=== PATIENT | male | born 1960 | race African-American/Black ===

== ENCOUNTER 2017-05-14 01:28 | Emergency (ER) | payer MEDICARE, OTHER ==
[~2017-05-14] VITALS: Ht 180.3 cm; Wt 140.6 kg
[2017-05-14] MEDS ORDERED: AMLODIPINE BESY10 MG ORAL (01:37)
[2017-05-14] MEDS ORDERED: HYDROCHLOROTHIA25 MG ORAL (01:37)
[2017-05-14] MEDS ORDERED: IBUPROFEN600 MG ORAL ×2 (01:37→01:49)
[2017-05-14] MEDS ORDERED: ASPIR-LOW81 MG ORAL (01:37)
[2017-05-14 01:45] VITALS: BP 115/76
[2017-05-14] MEDS ORDERED: Methocarbamol 750mg tab ORAL ONE (01:45)
[2017-05-14] MEDS ORDERED: ROBAXIN-750750 MG PO (01:49)
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
[2017-05-14 02:40] VITALS: BP 120/74
[2017-05-14 02:48] VITALS: BP 120/74
--- NOTE | 2017-05-14 11:05 | Diagnostic Imaging Report ---
Indication: Neck Pain Findings: 3 views of the cervical spine were obtained. There is narrowing of the C3-4 C4-5 C5-6 discs with endplate spur formation. There is no fracture or malalignment. Soft tissues are unremarkable. Impression: Degenerative spondylosis as described above
== END 2017-05-14 02:48 | disposition home or self-care (01) ==
LOC: EMR 01:50
DX: S13.4XXA Sprain of ligaments of cervical spine, initial encounter (principal); M54.9 Dorsalgia, unspecified; M25.562 Pain in left knee; V43.52XA Car driver injured in collision with other type car in traffic accident, initial encounter; Y93.9 Activity, unspecified; Y92.410 Unspecified street and highway as the place of occurrence of the external cause; Z88.8 Allergy status to other drugs, medicaments and biological substances; I10 Essential (primary) hypertension; E11.9 Type 2 diabetes mellitus without complications; M47.892 Other spondylosis, cervical region
CPT/HCPCS: 72040; 99284

== ENCOUNTER 2017-06-27 16:46 | Inpatient (IN) | payer MEDICARE, OTHER ==
[~2017-06-27] VITALS: Ht 180.3 cm; Wt 140.6 kg
[~2017-06-27 16:46] MED LIST: AMLODIPINE BESY10 MG ORAL; ASPIR-LOW81 MG ORAL; HYDROCHLOROTHIA25 MG ORAL; IBUPROFEN600 MG ORAL; ROBAXIN-750750 MG PO
[2017-06-27] MEDS ORDERED: Metoclopramide 10mg/2ml Inj IVP ONE (17:15)
[2017-06-27 17:30] VITALS: BP 131/80
--- NOTE | 2017-06-27 17:35 | Emergency Room Report ---
History of Present Illness General Chief Complaint: Fever Source: Patient, EMS Present Illness HPI 57YOM BIBEMS "because my pressure was high." Also c/o left catholic headache, dull in quality, 4/10 pain for 2 days. Took ibuprofen last night with improvement. c/o chills. "Turned off AC in my house." Denies neck pain/stiffness, chest pain, SOB, abd pain, nausea/vomiting, urinary complaints, rash, knee pain/swelling No sick contacts at home History of HTN - compliant with Norvasc, HCTZ. Took "extra doses" today because BP was high Allergies: Coded Allergies: LISINOPRIL (Verified Allergy, Mild, 05/14/17) Patient History Past Medical History: HTN Past Surgical History: other - knee surgery Pertinent Family History: none Social History: Denies: smoking, alcohol use, drug use Immunizations: UTD Reviewed Nursing Documentation: PMH: Agreed, PSxH: Agreed Nursing Documentation-PMH Past Medical History: No History, Except For Hx Hypertension: Yes Review of Systems All Other Systems: negative except mentioned in HPI Physical Exam Vital Signs Date Time Temp Pulse Resp B/P (MAP) Pulse Ox O2 Delivery O2 Flow Rate FiO2 06/27/17 16:44 102.0 102 20 126/84 95 Room Air Sp02 EP Interpretation: reviewed, normal General Appearance: normal inspection, well appearing, no apparent distress, alert, GCS 15, non-toxic, obese, other - Well appearing, pleasant gentleman in no acute distress Head: normocephalic, atraumatic Eyes: bilateral eye PERRL, bilateral eye EOMI ENT: normal ENT inspection, hearing grossly normal, normal voice Neck: normal inspection, full range of motion, supple, thyroid normal, no meningismus Respiratory: normal inspection, lungs clear, normal breath sounds, no respiratory distress, no retraction, no accessory muscle use, no wheezing, speaking full sentences Cardiovascular #1: normal peripheral pulses, regular rate, rhythm, no edema Gastrointestinal: normal inspection, normal bowel sounds, non tender, soft, no guarding, no hernia Genitourinary: no CVA tenderness Musculoskeletal: normal inspection, back normal, other - Bilateral prior surgical scars both knees. No appreciable effusion, warmth, ttp, rash Neurologic: normal inspection, alert, oriented x3, responsive, visual and stock associate III-XII nml as tested, motor strength/tone normal, speech normal Psychiatric: normal inspection, judgement/insight normal, mood/affect normal Skin: normal inspection, normal color, no rash, warm/dry, palpation normal Lymphatic: normal inspection, no adenopathy Medical Decision Making Diagnostic Impression: Primary Impression: Fever with chills Additional Impressions: Headache Qualified Codes: G44.209 - Tension-type headache, unspecified, not intractable Viral illness ST segment depression ER Course Fever with chills No obvious source - oropharynx, ears normal. No strep in oropharynx. No PNA. Abd soft, NT. No cellulitis. No meningismus. CXR negative for PNA Mild Leuks but no left shift Lactate normal Mild HypoK, repleted - PVCs on monitor ECG with inferior/lateral ST depressions. No elevation. LAFB, RBBB. Initial trop 0. Needs rule out for ACS ASA given although asymptomatic in ED Admit tele Dr Strong 7pm EKG Diagnostic Results Rate: normal Rhythm: other - incomplete RBBB, LAFB, LVH ST Segments: other - ST depressions with TWI in 2,3,AVF, v4-6 ASA given to the pt in ED: No Rhythm Strip Diag. Results EP Interpretation: yes Rate: 100 Rhythm: NSR, no PVC's, no ectopy Chest X-Ray Diagnostic Results Chest X-Ray Diagnostic Results : Chest X-Ray Ordered: Yes # of Views/Limited/Complete: 1 View Indication: Other - fever EP Interpretation: Yes Interpretation: no consolidation, no effusion, no pneumothorax, no acute cardiopulmonary disease Impression: No acute disease Electronically Signed by: Dr Stefano Payne MD Last Vital Signs Date Time Temp Pulse Resp B/P (MAP) Pulse Ox O2 Delivery O2 Flow Rate FiO2 06/27/17 16:44 102.0 102 20 126/84 95 Room Air Status: improved Disposition: ADMITTED INPATIENT Condition: Serious STEFANO PAYNE M.D. Jun 27, 2017 17:35
[2017-06-27 18:01] LABS: EOSINOPHILS % (AUTO) 0.2 % (0.0-3.0); LYMPHOCYTES % (AUTO) 24.3 % (20.0-45.0); MEAN CORPUSCULAR HEMOGLOBIN 32.5 PG (27.0-31.0); MEAN CORPUSCULAR HGB CONC 34.8 G/DL (32.0-36.0); MEAN CORPUSCULAR VOLUME 93 FL (80-99); MEAN PLATELET VOLUME 7.9 FL (6.5-10.1); MONOCYTES % (AUTO) 9.9 % (1.0-10.0); NEUTROPHILS % (AUTO) 63.7 % (45.0-75.0); PLATELET COUNT 216 K/UL (150-450); RED BLOOD COUNT 4.55 M/UL (4.70-6.10); RED CELL DISTRIBUTION WIDTH 14.6 % (11.6-14.8); WHITE BLOOD COUNT 11.5 K/UL (4.8-10.8)
[2017-06-27 18:06] LABS: ALANINE AMINOTRANSFERASE 24 U/L (3-41); ALBUMIN/GLOBULIN RATIO 1.4 (1.0-2.7); ANION GAP 14 (5-15); ASPARTATE AMINO TRANSFERASE 34 U/L (5-40); CALCIUM 9.2 mg/dL (8.6-10.2); CARBON DIOXIDE 29 mEQ/L (20-30); CHLORIDE 94 mEQ/L (98-107); CREATININE 1.4 mg/dL (0.7-1.2); GLOMERULAR FILTRATION RATE > 60 mL/min (>60); HEMOLYSIS 2; POTASSIUM 2.9 mEQ/L (3.4-4.9); SODIUM 137 mEQ/L (135-145); TOTAL PROTEIN 7.9 g/dL (6.6-8.7); TROPONIN I < 0.30 ng/mL (<=0.30)
[2017-06-27 18:16] LABS: CKMB 4.6 ng/mL (< 6.7)
[2017-06-27 18:24] LABS: BILIRUBIN,DIRECT 0.2 mg/dL (0.1-0.3)
[2017-06-27 19:00] VITALS: BP 137/88
[2017-06-27] MEDS: Aspirin EC 81mg tab ORAL SCH (19:33)
[2017-06-27 20:22] LABS: APPEARANCE,URINE CLEAR; KETONES,URINE NEGATIVE (NEGATIVE); LEUKOCYTE ESTERASE ,URINE NEGATIVE (NEGATIVE); NITRITE,URINE NEGATIVE (NEGATIVE); PH,URINE 6.5 (4.5-8.0); PROTEIN,URINE 2+ (NEGATIVE); UROBILINOGEN,URINE NORMAL MG/DL (0.0-1.0)
[2017-06-27 20:28] LABS: BACTERIA,URINE OCCASIONAL /HPF; RBC,URINE 0-2 /HPF (0 - 0); WBC,URINE 0-2 /HPF (0 - 0)
[2017-06-27 21:30] VITALS: BP 104/64
--- NOTE | 2017-06-27 22:29 | History & Physical ---
History and Physical History & Physicial H&P dictated [id number] dx: 1. fevers - likely viral illness 2. ST segment changes 3. HTN 4. Obesity plan 1. tele 2. Cards consult 3. IVF 4. f/u cultures DASH BUENROSTRO M.D. Jun 27, 2017 22:29
[2017-06-27] MEDS ORDERED: Morphine Sulfate 4mg/ml Inj IVP PRN (22:30)
[2017-06-27] MEDS ORDERED: Morphine Sulfate 2mg/ml Inj IVP PRN (22:30)
[2017-06-28] VITALS: BP 124/82
[2017-06-28 04:00] VITALS: BP 139/87
[2017-06-28 07:34] LABS: BASOPHILS % (AUTO) 1.3 % (0.0-2.0); EOSINOPHILS % (AUTO) 0.5 % (0.0-3.0); LYMPHOCYTES % (AUTO) 26.3 % (20.0-45.0); MEAN CORPUSCULAR HEMOGLOBIN 30.8 PG (27.0-31.0); MEAN CORPUSCULAR HGB CONC 33.1 G/DL (32.0-36.0); MEAN CORPUSCULAR VOLUME 93 FL (80-99); MEAN PLATELET VOLUME 7.5 FL (6.5-10.1); MONOCYTES % (AUTO) 11.5 % (1.0-10.0); NEUTROPHILS % (AUTO) 60.4 % (45.0-75.0); PLATELET COUNT 217 K/UL (150-450); RED BLOOD COUNT 4.56 M/UL (4.70-6.10); RED CELL DISTRIBUTION WIDTH 14.6 % (11.6-14.8); WHITE BLOOD COUNT 9.3 K/UL (4.8-10.8)
[2017-06-28 07:59] LABS: TROPONIN I < 0.30 ng/mL (<=0.30)
[2017-06-28 08:00] VITALS: BP 130/87
[2017-06-28 08:01] LABS: ANION GAP 14 (5-15); CALCIUM 8.7 mg/dL (8.6-10.2); CARBON DIOXIDE 28 mEQ/L (20-30); CHLORIDE 98 mEQ/L (98-107); CREATININE 1.1 mg/dL (0.7-1.2); GLOMERULAR FILTRATION RATE > 60 mL/min (>60); HEMOLYSIS 2; POTASSIUM 3.1 mEQ/L (3.4-4.9); SODIUM 140 mEQ/L (135-145)
[2017-06-28] MEDS: Heparin 5000 units/ml inj SUBQ SCH ×2 (09:47→20:22)
[2017-06-28 12:00] VITALS: BP 132/87
--- NOTE | 2017-06-28 12:36 | Diagnostic Imaging Report ---
Indication: SOB Technique: One view of the chest Comparison: none Findings: Lungs and pleural spaces are clear. The aorta is tortuous. There is slight rightward patient rotation. There is suggestion of slight rightward tracheal deviation Impression: No acute process Rightward tracheal deviation. Possibility of thyroid mass should be considered. This finding was discussed by phone with Dr. Perry in the emergency room at the time of interpretation
[2017-06-28 16:00] VITALS: BP 124/78
--- NOTE | 2017-06-28 17:05 | Internal Med Progress Note ---
Subjective Physician Name Akira Buenrostro Attending Physician Akira Buenrostro M.D. Current Medications Medications (Trade) Dose Ordered Sig/Aarcely Route PRN Reason Start Time Stop Time Status Last Admin Dose Admin Acetaminophen (Tylenol) 650 mg Q4H PRN ORAL Mild Pain (Pain Scale 1-3) 06/27/17 22:30 07/27/17 22:29 Amlodipine Besylate (Norvasc) 10 mg DAILY ORAL 06/28/17 13:30 07/28/17 13:29 06/28/17 13:50 Aspirin (Ecotrin) 81 mg STAT ORAL 06/27/17 19:15 07/27/17 19:14 06/27/17 19:33 Dextrose (Dextrose 50%) STAT PRN IV Hypoglycemia 06/27/17 22:30 07/27/17 22:29 Heparin Sodium (Porcine) (Heparin 5000 units/ml) 5,000 units EVERY 12 HOURS SUBQ 06/28/17 09:00 07/28/17 08:59 06/28/17 09:47 Hydrochlorothiazide (Hydrodiuril) 25 mg DAILY ORAL 06/28/17 13:30 07/28/17 13:29 06/28/17 13:51 Morphine Sulfate (Morphine Sulfate) 2 mg Q4H PRN IVP Moderate Pain (Pain Scale 4-6) 06/27/17 22:30 07/04/17 22:29 Morphine Sulfate (Morphine Sulfate) 4 mg Q4H PRN IVP Severe Pain (Pain Scale 7-10) 06/27/17 22:30 07/04/17 22:29 Ondansetron HCl (Zofran) 4 mg Q6H PRN IVP Nausea & Vomiting 06/27/17 22:30 07/27/17 22:29 Allergies: Coded Allergies: LISINOPRIL (Verified Allergy, Mild, 05/14/17) Subjective no headaches no fevers feels better no CP or SOB 12 pt ROS neg except above positives Objective Last Vital Signs Date Time Temp Pulse Resp B/P (MAP) Pulse Ox O2 Delivery O2 Flow Rate FiO2 06/28/17 13:50 72 132/87 06/28/17 12:00 98.8 18 98 Room Air General Appearance: no apparent distress, alert EENT: normal ENT inspection, TMs normal Neck: normal alignment, supple Cardiovascular: normal rate, regular rhythm Respiratory/Chest: lungs clear, normal breath sounds Abdomen: non tender, soft Neurologic: alert, oriented x 3 Skin: normal pigmentation, warm/dry Laboratory Tests Test 06/27/17 17:20 06/27/17 17:30 06/28/17 06:50 White Blood Count 11.5 K/UL (4.8-10.8) H 9.3 K/UL (4.8-10.8) Red Blood Count 4.55 M/UL (4.70-6.10) L 4.56 M/UL (4.70-6.10) L Hemoglobin 14.8 G/DL (14.2-18.0) 14.1 G/DL (14.2-18.0) L Hematocrit 42.5 % (42.0-52.0) 42.4 % (42.0-52.0) Mean Corpuscular Volume 93 FL (80-99) 93 FL (80-99) Mean Corpuscular Hemoglobin 32.5 PG (27.0-31.0) H 30.8 PG (27.0-31.0) Mean Corpuscular Hemoglobin Concent 34.8 G/DL (32.0-36.0) 33.1 G/DL (32.0-36.0) Red Cell Distribution Width 14.6 % (11.6-14.8) 14.6 % (11.6-14.8) Platelet Count 216 K/UL (150-450) 217 K/UL (150-450) Mean Platelet Volume 7.9 FL (6.5-10.1) 7.5 FL (6.5-10.1) Neutrophils (%) (Auto) 63.7 % (45.0-75.0) 60.4 % (45.0-75.0) Lymphocytes (%) (Auto) 24.3 % (20.0-45.0) 26.3 % (20.0-45.0) Monocytes (%) (Auto) 9.9 % (1.0-10.0) 11.5 % (1.0-10.0) H Eosinophils (%) (Auto) 0.2 % (0.0-3.0) 0.5 % (0.0-3.0) Basophils (%) (Auto) 2.0 % (0.0-2.0) 1.3 % (0.0-2.0) Sodium Level 137 mEQ/L (135-145) 140 mEQ/L (135-145) Potassium Level 2.9 mEQ/L (3.4-4.9) L 3.1 mEQ/L (3.4-4.9) L Chloride Level 94 mEQ/L (98-107) L 98 mEQ/L (98-107) Carbon Dioxide Level 29 mEQ/L (20-30) 28 mEQ/L (20-30) Anion Gap 14 (5-15) 14 (5-15) Blood Urea Nitrogen 10 mg/dL (7-23) 10 mg/dL (7-23) Creatinine 1.4 mg/dL (0.7-1.2) H 1.1 mg/dL (0.7-1.2) Estimat Glomerular Filtration Rate > 60 mL/min (>60) > 60 mL/min (>60) Glucose Level 105 mg/dL (74-106) 99 mg/dL (74-106) Lactic Acid Level 1.60 mmol/L (0.66-2.22) Calcium Level 9.2 mg/dL (8.6-10.2) 8.7 mg/dL (8.6-10.2) Total Bilirubin 1.1 mg/dL (0.0-1.2) Direct Bilirubin 0.2 mg/dL (0.1-0.3) Aspartate Amino Transf (AST/SGOT) 34 U/L (5-40) Alanine Aminotransferase (ALT/SGPT) 24 U/L (3-41) Alkaline Phosphatase 71 U/L (40-129) Total Creatine Kinase 560 U/L (38-174) H Creatine Kinase MB 4.6 ng/mL (< 6.7) Creatine Kinase MB Relative Index 0.8 Troponin I < 0.30 ng/mL (<=0.30) < 0.30 ng/mL (<=0.30) Total Protein 7.9 g/dL (6.6-8.7) Albumin 4.7 g/dL (3.5-5.2) Globulin 3.2 g/dL Albumin/Globulin Ratio 1.4 (1.0-2.7) Urine Color Yellow Urine Appearance Clear Urine pH 6.5 (4.5-8.0) Urine Specific [place] 1.005 (1.005-1.035) Urine Protein 2+ (NEGATIVE) H Urine Glucose (UA) Negative (NEGATIVE) Urine Ketones Negative (NEGATIVE) Urine Occult Blood 2+ (NEGATIVE) H Urine Nitrite Negative (NEGATIVE) Urine Bilirubin Negative (NEGATIVE) Urine Urobilinogen Normal MG/DL (0.0-1.0) Urine Leukocyte Esterase Negative (NEGATIVE) Urine RBC 0-2 /HPF (0 - 0) H Urine WBC 0-2 /HPF (0 - 0) Urine Squamous Epithelial Cells None /LPF (NONE/OCC) Urine Bacteria Occasional /HPF (NONE) Microbiology Date/Time Source Procedure Growth Status 06/27/17 17:45 Nasal Nares Influenza Types A,B Antigen (CARMITA) - Final Complete Assessment/Plan Assessment/Plan dx: 1. fevers - likely viral illness 2. ST segment changes 3. HTN 4. Obesity plan 1. tele 2. Cards consult 3. IVF - off 4. f/u cultures 5. flu - negative AKIRA BUENROSTRO M.D. Jun 28, 2017 17:05
[2017-06-28 20:00] VITALS: BP 128/85
[2017-06-28] MEDS: Aspirin EC 81mg tab ORAL SCH (20:22)
--- NOTE | 2017-06-28 21:30 | History and Physical Report ---
DATE OF ADMISSION: 06/27/2017 REASON FOR ADMISSION: Fevers and headaches. History of Present Illness: This is a 57-year-old male with history of hypertension, who presents to the emergency room for headache and fevers that started one day ago. He also reports chills. He states he has bilateral temporal headache that is dull in quality, 4/10 in intensity, started approximately 2 days ago. He denies any neck stiffness. He denies any nausea or vomiting. He denies any sick contacts. PAST MEDICAL HISTORY: Hypertension. PAST SURGICAL HISTORY: Knee surgery. ALLERGIES: Lisinopril. Social History: The patient does not drink alcohol, use any drugs, or smoke. Review Of Systems: Twelve-point review of systems is negative except for pertinent positives mentioned above. PHYSICAL EXAMINATION: Vital Signs: In the emergency room, blood pressure is 126/84, temperature is 102 degrees, pulse is 102, O2 saturation is 95% on room air. General: No acute distress. The patient is alert, awake, and oriented x3. He does appear lethargic and ill. HEENT: Normocephalic/atraumatic. NECK: Supple. No JVD. Lungs: Clear to auscultation bilaterally. No crackles, rhonchi, wheezes, or rales. CARDIOVASCULAR: Regular rate and rhythm. Normal S1, S2. ABDOMEN: Obese, nontender, and nondistended. EXTREMITIES: No clubbing or cyanosis. SKIN: There are no rashes. Normal inspection. NEUROLOGIC: The patient can move all extremities and he is awake. Laboratory And Diagnostic Data: Chest x-ray shows no evidence of infiltrates, however, with tracheal deviation. Labs, CBC, white count of 11.5, hemoglobin of 14.8, and platelet count of 216,000. BMP, sodium 137, potassium 3.9, chloride is 94, CO2 is 29, BUN of 10, and creatinine is 1.4. LFTs are within normal limits. CPK is 560. Troponin less than 0.3 x2. UA shows 0 to 2 white blood cells. Chest x-ray shows no evidence of pneumonia, right tracheal deviation. EKG shows normal sinus rhythm at 100. EKG shows some inferior lateral ST depressions, right bundle-branch block. ASSESSMENT: 1. Viral illness with headaches and fevers. 2. Some ST-segment depressions in lateral leads. 3. Hypertension. 4. Fevers. PLAN: 1. Admit the patient to telemetry. 2. Cardiology consult for ST changes. 3. IV fluids. 4. Monitor. Akira Strong MD DR: Domenico JOB#: [id number] CC:
--- NOTE | 2017-06-28 22:53 | Cardiology Progress Note ---
Subjective Subjective [id number] Objective Last 24 Hour Vital Signs Date Time Temp Pulse Resp B/P (MAP) Pulse Ox O2 Delivery O2 Flow Rate FiO2 06/28/17 20:00 99.3 85 18 128/85 98 Room Air 06/28/17 20:00 84 06/28/17 16:00 84 06/28/17 16:00 99.0 85 20 124/78 97 Room Air 06/28/17 13:50 72 132/87 06/28/17 12:00 86 06/28/17 12:00 98.8 72 18 132/87 98 Room Air 06/28/17 08:45 98.2 06/28/17 08:00 91 06/28/17 08:00 99.9 84 18 130/87 97 Room Air 06/28/17 04:00 90 06/28/17 04:00 100.0 96 23 139/87 95 Room Air 06/28/17 00:00 99.9 96 22 124/82 100 Room Air 06/28/17 00:00 90 Intake and Output 06/28/17 06/29/17 19:00 07:00 # Voids 10 Laboratory Tests Test 06/28/17 06:50 White Blood Count 9.3 K/UL (4.8-10.8) Red Blood Count 4.56 M/UL (4.70-6.10) L Hemoglobin 14.1 G/DL (14.2-18.0) L Hematocrit 42.4 % (42.0-52.0) Mean Corpuscular Volume 93 FL (80-99) Mean Corpuscular Hemoglobin 30.8 PG (27.0-31.0) Mean Corpuscular Hemoglobin Concent 33.1 G/DL (32.0-36.0) Red Cell Distribution Width 14.6 % (11.6-14.8) Platelet Count 217 K/UL (150-450) Mean Platelet Volume 7.5 FL (6.5-10.1) Neutrophils (%) (Auto) 60.4 % (45.0-75.0) Lymphocytes (%) (Auto) 26.3 % (20.0-45.0) Monocytes (%) (Auto) 11.5 % (1.0-10.0) H Eosinophils (%) (Auto) 0.5 % (0.0-3.0) Basophils (%) (Auto) 1.3 % (0.0-2.0) Sodium Level 140 mEQ/L (135-145) Potassium Level 3.1 mEQ/L (3.4-4.9) L Chloride Level 98 mEQ/L (98-107) Carbon Dioxide Level 28 mEQ/L (20-30) Anion Gap 14 (5-15) Blood Urea Nitrogen 10 mg/dL (7-23) Creatinine 1.1 mg/dL (0.7-1.2) Estimat Glomerular Filtration Rate > 60 mL/min (>60) Glucose Level 99 mg/dL (74-106) Calcium Level 8.7 mg/dL (8.6-10.2) Troponin I < 0.30 ng/mL (<=0.30) Microbiology Date/Time Source Procedure Growth Status 06/27/17 17:45 Nasal Nares Influenza Types A,B Antigen (CARMITA) - Final Complete GRACIE CUADRA Jun 28, 2017 22:53
[2017-06-29] VITALS: BP 127/66
[2017-06-29 04:00] VITALS: BP 98/66
--- NOTE | 2017-06-29 04:15 | Consultation ---
DATE OF CONSULTATION: 06/29/2017 CARDIOLOGY CONSULTATION REFERRING PHYSICIAN: Akira Strong M.D. PATIENT IDENTIFYING DATA: The patient is a 57-year-old male. REASON FOR EVALUATION: Abnormal ECG. History Of Present Illness: The patient is a very pleasant 57-year-old male who reports that he came in because he had fever, chills, shaking and felt very uncomfortable and also, he was concerned because his blood pressure went up. Usually, his blood pressure is very well controlled. He has a history of hypertension for years and he was very compliant with his medications and his blood pressure was running 120/80 besides rare exceptions and because of that, he was very concerned and came to the emergency department. PAST MEDICAL HISTORY: Significant for hypertension and arthritis. Past Surgical History: Remarkable for bilateral knee surgeries when he was 11-year-old to improve his deformities. MEDICATIONS: His list of medications is reviewed. His home medications include amlodipine, aspirin, hydrochlorothiazide, ibuprofen, and methocarbamol. Allergies: He is allergic to lisinopril with angioedema and he actually told me he had to be intubated for four days because of angioedema when he took lisinopril. Habits: He used to smoke, he quit 3 years ago. His drug and alcohol, he denies. His coronary risk factors include hypertension and smoking. He denies hyperlipidemia and he does not have diabetes. FAMILY HISTORY: There is no family history of sudden . Review Of Systems: He today feels much better. No fever or chills. He has no chest pain. He has no orthopnea. No syncopal episodes or palpitations. He walks not much because of the left knee pain. He plans to have his surgery soon, but with the walking, he denies any cardiac symptoms. PHYSICAL EXAMINATION: GENERAL: The patient appears to be comfortable. Vital Signs: Blood pressure was 132/87, heart rate 85, temperature is normal, and oxygen saturation is normal. Neck: Supple. Neck veins are not distended. Carotid upstroke is preserved. No thyromegaly. LUNGS: Slightly decreased breath sounds with some rales. Heart: PMI is not palpable. S1 is slightly accentuated and A2 is accentuated. ABDOMEN: Obese and soft. No masses palpable. No bruit. Extremities: Lower extremity, no edema. Palpable distal pulses. There is some deformity and he has good distal pulses bilaterally on his both lower extremities. NEUROLOGIC: Appears to be unremarkable. Laboratory And Diagnostic Data: His ECG shows sinus rhythm with ventricular rate of 95 beats per minute and QRS 110. There is leftward axis, left anterior fascicular block and incomplete right bundle branch block and negative T-waves in II, III, aVF, V4, V5, and V6. His chest x-ray was done and it did not show any significant abnormalities besides the rightward tracheal deviation. The rest of the laboratories were done and white count yesterday was 11.5 and today it is normal. His potassium was 3.1 today, otherwise his laboratories unremarkable. Impression And Recommendation: The patient had abnormal electrocardiogram. He does not have any cardiac history. I suspect that he probably has left ventricular hypertrophy with some strain and that is why he has left anterior hemiblock, however, the patient reports that he had a very well-controlled blood pressure for a long time. So, I just want to make sure he does not have cardiomyopathy and I am going to go ahead and order echocardiogram. Otherwise, I do not have any additional recommendations. I do not think he needs ischemia workup because he is totally asymptomatic from ischemia standpoint. He does not have any angina. Thank you for your consultation. I will follow the echo report on this patient. Shira Estrada M.D. DR: KULWINDER JOB#: [id number] CC: JIGAR
[2017-06-29 08:00] VITALS: BP 134/83
[2017-06-29] MEDS: Heparin 5000 units/ml inj SUBQ SCH (09:14)
[2017-06-29 12:00] VITALS: BP 102/67
[2017-06-29 13:07] LABS: ANION GAP 14 (5-15); CALCIUM 9.2 mg/dL (8.6-10.2); CARBON DIOXIDE 29 mEQ/L (20-30); CHLORIDE 97 mEQ/L (98-107); CREATININE 1.1 mg/dL (0.7-1.2); GLOMERULAR FILTRATION RATE > 60 mL/min (>60); HEMOLYSIS 2; POTASSIUM 3.6 mEQ/L (3.4-4.9); SODIUM 140 mEQ/L (135-145)
[2017-06-29 16:00] VITALS: BP 131/85
--- NOTE | 2017-06-29 16:09 | Diagnostic Imaging Report ---
Indication: Neck pain. Technique: Thyroid ultrasound performed. Findings: There are no prior studies for comparison. There are multiple nodules within both lobes of the thyroid gland. The largest is within the left lobe measuring about 4 cm. Dense adjacent calcification noted. Generalized heterogeneity and enlargement of the thyroid gland demonstrated. The right lobe measures 4.6 x 1.5 x 2.1 CM. Left lobe measures 6.6 x 3.3 x 3.8 cm. Impression: Thyromegaly with multiple nodules.
--- NOTE | 2017-06-29 16:29 | Discharge Summary ---
Discharge Summary Hospital Course Date of Admission Jun 27, 2017 at 20:58 Date of Discharge Admitting Diagnosis ACS HPI Dutch Perry is a 57 year old male who was admitted on Jun 27, 2017 at 20:58 for Acute Coronary Syndrome d/c summary dictated [id number] Discharge Condition Upon Discharge: stable Discharge Disposition Patient was discharged to STABLE Discharge Diagnoses: DASH BUENROSTRO M.D. Jun 29, 2017 16:29
--- NOTE | 2017-06-29 16:30 | Discharge Instructions ---
Discharge Instructions Discharge Instructions Follow up with: Dr. Buenrostro [phone] for thyroid nodule workup Call MD/Return to Hospital if: worsening symptoms Diet: regular Resume Normal Activity?: Yes For Congestive Heart Failure Reminder Report to your physician any weight gain of 5 pounds or more in one week. DASH BUENROSTRO M.D. Jun 29, 2017 16:30
[2017-06-29 16:57] LABS: THYROID STIMULATING HORMONE 6.29 uIU/mL (0.300-4.500)
--- NOTE | 2017-06-30 10:45 | Discharge Summary ---
DATE OF ADMISSION: 06/27/2017 DATE OF DISCHARGE: 06/29/2017 Reason for admission: Febrile illness concerning for viral illness and ST changes on EKG concerning for ischemia. Procedures Done Here: TTE showing left ventricular hypertrophy with normal ejection fraction and mild diastolic dysfunction. SIGNIFICANT FINDINGS: None. Brief Hospital Course And Summary: This is a 57-year-old male with history of hypertension and obesity, who is undergoing a lot of stress at home related to his [id number] , who presents to the hospital for viral illness with headaches and fevers that started 1 day ago. The patient had a chest x-ray that showed no infiltrates. He had an EKG showing some ST changes in the lateral leads with LVH. He was seen by Cardiology. He had TTE that was normal. He was given IV fluids and rehydrated for acute kidney injury secondary to dehydration and decreased p.o. intake. He is stable for discharge. He will follow up with myself in the office. DISCHARGE CONDITION: Stable. Discharge Instructions: The patient is to follow up with myself. The patient has chest x-ray that showed right tracheal deviation and possible thyroid mass, therefore had a thyroid ultrasound that showed thyromegaly and multiple thyroid nodules, which need to be worked up. Addendum: The patient had a thyroid ultrasound that showed multiple thyroid nodules within both lobes of the thyroid gland and largest in the left gland measuring 4 cm. TSH and free T4 are pending. The patient to return to hospital for worsening condition or symptoms. The patient to take Tylenol for fevers. The patient will follow up for results of thyroid study and will need either ultrasound thyroid nodule biopsy if TSH is elevated or thyroid scan if TSH is depressed. DISCHARGE DIAGNOSES: 1. Viral illness. 2. Multiple thyroid nodules. 3. Obesity. 4. History of hypertension. 5. Mild diastolic dysfunction. Akira Strong MD DR: MAHNAZ JOB#: [id number] CC:
--- NOTE | 2017-07-05 19:21 | Cardiology Report ---
APPROVED REPORT EKG Measurement Heart [id number] Normal sinus rhythm Possible Left atrial enlargement Incomplete right bundle branch block Left anterior fascicular block Left ventricular hypertrophy Cannot rule out Septal infarct, age undetermined Abnormal ECG
--- NOTE | 2017-07-06 17:57 | Cardiology Report ---
APPROVED REPORT EXAM: Two-dimensional and M-mode echocardiogram with Doppler and color Doppler. INDICATION Ejection Fraction M-Mode DIMENSIONS IVSd1.5 (0.7-1.1cm)Left Atrium (MM)3.3 (1.6-4.0cm) LVDd5.2 (3.5-5.6cm)Aortic Root2.0 (2.0-3.7cm) PWd1.5 (0.7-1.1cm)Aortic Cusp Exc.2.0 (1.5-2.0cm) LVDs3.3 (2.5-4.0cm) PWs1.6 cm Technically difficult study due to poor acoustical windows. Normal left ventricular chamber size, systolic function and wall motion. Left ventricular ejection fraction estimated to be 65-70%. Mild left ventricular hypertrophy. No evidence of pericardial or pleural effusion. All other cardiac chamber sizes are within normal limits. Mild focal aortic valve sclerosis with mild decrease in cusp excursion. Thickened mitral valve leaflets with normal excursion. Mild mitral annulus and aortic root calcification. Pulmonic valve not well visualized. Normal tricuspid valve structure. IVC is normal in size and collapsible with respiration. A color flow and spectral Doppler study was performed and revealed: Mild aortic regurgitation. Mild mitral regurgitation. Mitral diastolic velocities suggest reduced left ventricular relaxation c/w diastolic dysfunction grade 1. No tricuspid regurgitation. A peak gradient of 20mmhg is recorded across the LVOT / AV with am MG of 10mmhg may be flow related.
== END 2017-06-29 17:39 | disposition home or self-care (01) | DRG 866 ==
LOC: EDBD 16:46 → EMR 17:06 → EDBEDREQSVC 18:16 → EDBEDREQ 19:07 → 2E 20:58 → EDBEDREQ 21:06
DX: B34.9 Viral infection, unspecified (principal); N17.9 Acute kidney failure, unspecified; I10 Essential (primary) hypertension; Z88.8 Allergy status to other drugs, medicaments and biological substances; E66.9 Obesity, unspecified; E04.2 Nontoxic multinodular goiter; I51.89 Other ill-defined heart diseases; M19.90 Unspecified osteoarthritis, unspecified site; Z87.891 Personal history of nicotine dependence; E86.0 Dehydration; I45.10 Unspecified right bundle-branch block
CPT/HCPCS: 36415; 71010; 76536; 80048; 80053; 81003; 82248; 82550; 82553; 83036; 83605; 84439; 84443; 84484; 85025; 86710; 93005; 93306; 99285; J2765; J8499